=== PATIENT | male | born 1990 | race Hispanic/Latino ===

== ENCOUNTER 2022-11-19 18:41 | Emergency (ER) | payer SELFPAY | END 2022-11-19 20:30 | disposition home or self-care (01) | LOC: MW.ED 18:41 | DX: F32.A Depression, unspecified (principal); F19.10 Other psychoactive substance abuse, uncomplicated | CPT/HCPCS: 80305-QW; 99283; 99284 ==

== ENCOUNTER 2022-11-29 12:48 | Emergency (ER) | payer SELFPAY ==
[2022-11-29] MEDS ORDERED: Water For Injection, Sterile 20 ML SDV INJECT ONE (13:35)
[2022-11-29] MEDS ORDERED: Ziprasidone Mesylate 20 MG Vial IM ONE (13:35)
[2022-11-29] MEDS ORDERED: LORazepam 2 MG/ML SDV IVPUSH ONE (13:36)
[2022-11-29 14:31] LABS: ACETAMINOPHEN <2.0 ug/mL; BLOOD UREA NITROGEN,BUN 14 mg/dL (7.0-18.0); CARBON DIOXIDE,CO2 24.9 mmol/L (21.0-32.0); CHLORIDE,CL 100 mmol/L (98-107); ESTIMATED GFR 91 mL/min (>60); GLUCOSE RANDOM 91 mg/dL (74-106); POTASSIUM,K 3.6 mmol/L (3.5-5.1); SODIUM,NA 136 mmol/L (136-148)
== END 2022-11-29 19:14 ==
LOC: MW.ED 12:48
DX: F23 Brief psychotic disorder (principal); F31.2 Bipolar disorder, current episode manic severe with psychotic features
CPT/HCPCS: 36415; 80053; 80143; 80178; 80179; 80305; 80307; 81001; 83735; 84443; 85025; 87635; 93005; 96372; 96374; 99285; J2060; J3486; 93010; 99284; J3490; U0002

== ENCOUNTER 2023-08-01 12:03 | Emergency (ER) | payer OTHER ==
[2023-08-01] MEDS ORDERED: LORazepam 1 MG Tab PO ONE (12:14)
== END 2023-08-01 12:40 | disposition home or self-care (01) ==
LOC: MW.ED 12:03
DX: F14.10 Cocaine abuse, uncomplicated (principal); F31.9 Bipolar disorder, unspecified; Z76.0 Encounter for issue of repeat prescription
CPT/HCPCS: 99283; A9270

== ENCOUNTER 2023-08-01 23:28 | Emergency (ER) | payer OTHER ==
[2023-08-01] MEDS ORDERED: Lithium Carbonate 300 MG Tab.ER PO ONE (23:45)
== END 2023-08-02 00:31 | disposition home or self-care (01) ==
LOC: MW.ED 23:28
DX: F31.9 Bipolar disorder, unspecified (principal); F43.10 Post-traumatic stress disorder, unspecified; F41.9 Anxiety disorder, unspecified; I10 Essential (primary) hypertension
CPT/HCPCS: 99284; A9270; 99283

== ENCOUNTER 2023-08-03 00:05 | Emergency (ER) | payer OTHER ==
[2023-08-03 00:39] LABS: APPEARANCE,URINE CLEAR; COLOR,URINE YELLOW; GLUCOSE,URINE NEGATIVE (NEGATIVE); KETONES,URINE TRACE mg/dL (NEGATIVE); LEUKOCYTE ESTERASE,URINE NEGATIVE (NEGATIVE); NITRITE,URINE NEGATIVE (NEGATIVE); OCCULT BLOOD,URINE TRACE-INTACT (NEGATIVE); PROTEIN,URINE 30 mg/dL (NEGATIVE)
[2023-08-03 00:41] LABS: BASOPHILS ABSOLUTE AUTO 0.08 K/uL (0.00-0.20); BASOPHILS PERCENT AUTO 0.5 % (0.0-1.0); EOSINOPHILS PERCENT AUTO 0.6 % (0.0-6.0); HEMATOCRIT 56.9 % (42.0-52.0); HEMOGLOBIN 19.8 g/dL (14.0-18.0); IMMATURE GRAN ABSOLUTE AUTO 0.06 K/uL (0.00-0.05); IMMATURE GRAN PERCENT AUTO 0.4 % (0.0-0.4); LYMPHOCYTES PERCENT AUTO 7.1 % (24.0-44.0); MEAN CORPUSCULAR HEMOGLOBIN 32.2 pg (28.0-32.0); MEAN CORPUSCULAR HGB CONC 34.8 g/dL (32.0-36.0); MEAN CORPUSCULAR VOLUME 92.5 fL (83.0-99.0); MEAN PLATELET VOLUME 9.7 fL (9.4-12.4); MONOCYTES ABSOLUTE AUTO 0.98 K/uL (0.00-0.80); MONOCYTES PERCENT AUTO 6.3 % (0.0-8.0); NEUTROPHILS ABSOLUTE AUTO 13.23 K/uL (1.80-7.70); NEUTROPHILS PERCENT AUTO 85.1 % (41.0-71.0); PLATELET COUNT,PLT 370 K/uL (150-400); RED BLOOD CELL COUNT 6.15 M/uL (4.52-5.90); WHITE BLOOD CELL COUNT,WBC 15.55 K/uL (3.9-11.3)
[2023-08-03 00:48] LABS: AMPHETAMINES SCREEN, URINE NEGATIVE (CUTOFF=500); BARBITURATE SCREEN,URINE NEGATIVE (CUTOFF=200); BENZODIAZEPINES SCREEN,URINE PRESUMPTIVE POSITIVE (CUTOFF=150); BUPRENORPHINE SCREEN,URINE NEGATIVE (CUTOFF=10); METHADONE SCREEN, URINE NEGATIVE (CUTOFF=200); METHAMPHETAMINES SCREEN, URINE NEGATIVE (CUTOFF=500); OXYCODONE SCREEN,URINE NEGATIVE (CUT0FF=100); PCP SCREEN,URINE NEGATIVE (CUTOFF=25); THC SCREEN,URINE 20 NG/ML NEGATIVE (CUTOFF=50)
[2023-08-03 00:56] LABS: BACTERIA,URINE FEW (NEGATIVE); BILIRUBIN,URINE SMALL (NEGATIVE); EPITHELIAL CELLS,URINE FEW (NONE-FEW); MUCUS,URINE MODERATE (NONE-MOD); WBC,URINE 0-2 (0-5/HPF)
[2023-08-03 01:07] LABS: A/G RATIO 0.7 (0.9-1.6); ACETAMINOPHEN <2.0 ug/mL; ALANINE AMINOTRANSFERASE,ALT 14 IU/L (14-63); ALBUMIN 3.4 g/dL (3.4-5.0); ALKALINE PHOSPHATASE 101 U/L (46-116); ASPARTATE AMNIOTRANSFERASE,AST 17 IU/L (15-37); BILIRUBIN TOTAL 0.6 mg/dL (0.2-1.0); BLOOD UREA NITROGEN,BUN 11 mg/dL (7.0-18.0); CALCIUM 9.8 mg/dL (8.5-10.1); CHLORIDE,CL 101 mmol/L (98-107); CREATININE 1.6 mg/dL (0.8-1.3); ETHANOL BLOOD MEDICAL 5 mg/dL; GLUCOSE RANDOM 183 mg/dL (74-106); MAGNESIUM 1.9 mg/dL (1.8-2.4); POTASSIUM,K 3.6 mmol/L (3.5-5.1); PROTEIN TOTAL,TP 8.5 g/dL (6.4-8.2); SALICYLATE 0.9 mg/dL (0.0-20.0); SODIUM,NA 139 mmol/L (136-148)
[2023-08-03 01:08] LABS: ESTIMATED GFR 58 mL/min (>60)
[2023-08-03] MEDS ORDERED: LORazepam 2 MG/ML SDV IM ONE ×2 (01:10→02:14)
[2023-08-03] MEDS ORDERED: Lithium Carbonate 300 MG Tab.ER PO ONE (01:10)
[2023-08-03 02:01] LABS: CORONAVIRUS COVID-19 NAA NEGATIVE (NEGATIVE); INFLUENZA A NAA NEGATIVE (NEGATIVE); INFLUENZA B NAA NEGATIVE (NEGATIVE); RESPIRATORY SYNCYTIAL VIR NAA NEGATIVE (NEGATIVE)
[2023-08-03] MEDS ORDERED: Ziprasidone Mesylate 20 MG Vial IM ONE (02:12)
[2023-08-03] MEDS ORDERED: Water For Injection, Sterile 20 ML SDV INJECT ONE (02:12)
[2023-08-03] MEDS ORDERED: diphenhydrAMINE 50 MG/ML SDV IM ONE (02:14)
== END 2023-08-03 03:45 | disposition home or self-care (01) ==
LOC: MW.ED 00:05
DX: F14.14 Cocaine abuse with cocaine-induced mood disorder (principal); F31.9 Bipolar disorder, unspecified; F23 Brief psychotic disorder; F14.10 Cocaine abuse, uncomplicated; Z20.822 Contact with and (suspected) exposure to COVID-19
CPT/HCPCS: 0241U; 36415; 80053; 80143; 80179; 80305; 80307; 81001; 83735; 85025; 96372; 99291; A9270; J1200; J2060; J3486; J3490

== ENCOUNTER 2024-02-08 00:10 | Emergency (ER) | payer OTHER ==
[2024-02-08] MEDS: HYDROmorphone 1 MG/ML Syringe IVPUSH STA ×3 (00:25→01:39)
[2024-02-08] MEDS: Diphtheria,Pertussis(Acell),Tetanus Vaccine 0.5 ML Syringe IM ONE (00:32)
[2024-02-08] MEDS: ceFAZolin 2 GM in Sodium Chloride 0.9% 50 ML IV ONE (00:32)
[2024-02-08] MEDS: HYDROmorphone 1 MG/ML Syringe ONE (00:55)
[2024-02-08] MEDS: Lidocaine 1% 5 ML VIAL INJECT ONE ×2 (01:14→01:15)
[2024-02-08] MEDS: Lidocaine 1% 5 ML VIAL INJECT STA (01:41)
== END 2024-02-08 02:25 | disposition home or self-care (01) ==
LOC: MW.ED 00:10
DX: S51.811A Laceration without foreign body of right forearm, initial encounter (principal); W26.8XXA Contact with other sharp object(s), not elsewhere classified, initial encounter
CPT/HCPCS: 12006; 73090; 73130; 90471; 90715; 96365; 96375; 96376; 99283; J0690; J1170; J3490

== ENCOUNTER 2025-05-13 13:47 | Emergency (ER) | payer OTHER ==
[2025-05-13] MEDS ORDERED: Sodium Chloride 0.9% 2.5 ML Syringe FLUSH PRN (15:01)
[2025-05-13] MEDS ORDERED: Sodium Chloride 0.9% 10 ML Syringe FLUSH PRN (15:01)
== END 2025-05-13 16:20 | disposition home or self-care (01) ==
LOC: MW.ED 13:47
DX: B34.9 Viral infection, unspecified (principal); E86.0 Dehydration
CPT/HCPCS: 87428; 87651; 99284; J7040; 99283